=== PATIENT | female | born 1985 | race Caucasian/White ===

== ENCOUNTER 2019-06-11 14:32 | Emergency (ER) | payer BC, OTHER ==
[2019-06-11 15:33] VITALS: BP 137/83; PULSE 112
--- NOTE | 2019-06-11 15:49 | EDM.PDOC ---
ED HPI GENERAL MEDICAL PROBLEM - General Chief Complaint: Respiratory Problem Stated Complaint: COUGH Time Seen by Provider: 06/11/19 15:25 - History of Present Illness INITIAL COMMENTS - FREE TEXT/NARRATIVE: HISTORY AND PHYSICAL: History of present illness: Patient is a 33-year-old female who presents with over 10 day history of dry cough and congestion and is here with 2 of her children who have similar symptoms. The children have tested positive for influenza B but the patient has not been tested and has been using [id number] symptomatic management. She is eating and drinking normally and she has no pulmonary history. She is here just due to frustration with her children and her own symptoms and wanted evaluation. Review of systems: As per history of present illness and below otherwise all systems reviewed and negative. Past medical history: As per history of present illness and as reviewed below otherwise noncontributory. Surgical history: As per history of present illness and as reviewed below otherwise noncontributory. Social history: No reported history of drug or alcohol abuse. Family history: As per history of present illness and as reviewed below otherwise noncontributory. Physical exam: Patient's voice is normal without hoarse or breathlessness and she exhibits no cough on my evaluation HEENT: Atraumatic, normocephalic, pupils reactive, negative for conjunctival pallor or scleral icterus, mucous membranes moist, throat clear, neck supple, nontender, trachea midline. Lungs: Clear to auscultation, breath sounds equal bilaterally, chest nontender. No wheezing stridor or work of breathing Heart: S1S2, regular and rhythm no overt murmurs Abdomen: Soft, nondistended, nontender. NABS Pelvis: Deferred Genitourinary: Deferred. Rectal: Deferred. Extremities: Atraumatic, negative for cords or calf pain. Neurovascular unremarkable. Neuro: Awake, alert, oriented. Cranial nerves II through XII unremarkable. Cerebellum unremarkable. Motor and sensory unremarkable throughout. Exam nonfocal. Diagnostics: [] Therapeutics: [] Impression: URI with cough Definitive disposition and diagnosis as appropriate pending reevaluation and review of above. - Related Data Allergies Allergy/AdvReac Type Severity Reaction Status Date / Time No Known Allergies Allergy Verified 06/11/19 15:30 Home Meds: Home Meds Albuterol [Ventolin HFA] 2 inh INH Q4HR 10/12/14 [History] Amoxicillin 875 mg PO ASDIRECTED 06/11/19 [History] Past Medical History - Infectious Disease History Infectious Disease History: Reports: None - Past Surgical History HEENT Surgical History: Reports: Adenoidectomy, Tonsillectomy Social & Family History - Family History Family Medical History: Noncontributory - Tobacco Use Smoking Status *Q: Current Every Day Smoker Years of Tobacco use: 10 Packs/Tins Daily: 1 - Caffeine Use Caffeine Use: Reports: Coffee - Recreational Drug Use Recreational Drug Use: No ED ROS GENERAL - Review of Systems Review Of Systems: Comprehensive ROS is negative, except as noted in HPI. ED EXAM, GENERAL - Physical Exam Exam: See Below (See dictation) Course - Vital Signs Last Recorded V/S: Last Vital Signs Temp 37.4 C 06/11/19 15:31 Pulse 112 H 06/11/19 15:31 Resp 18 06/11/19 15:31 BP 137/83 06/11/19 15:31 Pulse Ox 95 06/11/19 15:31 Departure - Departure Time of Disposition: 15:49 Disposition: Home, Self-Care 01 Condition: Good Clinical Impression: URI with cough and congestion - Discharge Information Referrals: Rebecca Hernández DO [Primary Care Provider] - Additional Instructions: The following information is given to patients seen in the emergency department who are being discharged to home. This information is to outline your options for follow-up care. We provide all patients seen in our emergency department with a follow-up referral. The need for follow-up, as well as the timing and circumstances, are variable depending upon the specifics of your emergency department visit. If you don't have a primary care physician on staff, we will provide you with a referral. We always advise you to contact your personal physician following an emergency department visit to inform them of the circumstance of the visit and for follow-up with them and/or the need for any referrals to a consulting specialist. The emergency department will also refer you to a specialist when appropriate. This referral assures that you have the opportunity for followup care with a specialist. All of these measure are taken in an effort to provide you with optimal care, which includes your followup. Under all circumstances we always encourage you to contact your private physician who remains a resource for coordinating your care. When calling for followup care, please make the office aware that this follow-up is from your recent emergency room visit. If for any reason you are refused follow-up, please contact the [facility] emergency department at and ask to speak to the emergency department charge nurse. [facility] Primary care- Internal Medicine and Family [facility] [address] [place] [id number] [place], [place] [id number] Use [id number] meds and symptomatic management as we discussed and follow- up with your provider in the clinic. Return to ER as needed and as discussed
== END 2019-06-11 16:05 | disposition home or self-care (01) ==
LOC: MW.ED 14:32
DX: J06.9 Acute upper respiratory infection, unspecified (principal); F17.210 Nicotine dependence, cigarettes, uncomplicated
CPT/HCPCS: 99283

== ENCOUNTER 2020-11-08 18:59 | Emergency (ER) | payer BC, OTHER ==
[2020-11-08] MEDS ORDERED: Cephalexin 500 MG Cap PO ONE (19:50)
[2020-11-08] MEDS ORDERED: traMADol 50 MG Tab PO ONE (19:50)
--- NOTE | 2020-11-08 19:56 | EDM.PDOC ---
ED HPI GENERAL MEDICAL PROBLEM - General Chief Complaint: ENT Problem Stated Complaint: THROBBING MOUTH AND TOOTH PAIN Time Seen by Provider: 11/08/20 19:37 - History of Present Illness INITIAL COMMENTS - FREE TEXT/NARRATIVE: HISTORY AND PHYSICAL: History of present illness: This is a 35-year-old female who presents ER today secondary to pain and throbbing to her left upper teeth where she had 2 extractions done earlier today . Patient is concerned that the throbbing may be secondary to infection. Patient reports that she saw her dentist today and had 2 teeth extracted and was not sent home on any antibiotics and is concerned that the throbbing might be the development of infection. Patient reports that she has been taking acetaminophen and ibuprofen with some relief in her discomfort. Patient denies any other symptoms at this time. Patient has any recent fevers, shakes, chills, nausea, vomiting, diarrhea, dysuria, frequency, urgency. Review of systems: As per history of present illness and below otherwise all systems reviewed and negative. Past medical history: As per history of present illness and as reviewed below otherwise noncontributory. Surgical history: As per history of present illness and as reviewed below otherwise noncontributory. Social history: No reported history of drug or alcohol abuse. Family history: As per history of present illness and as reviewed below otherwise noncontr ibutory. Physical exam: This patient was seen and evaluated during the 2019 SARS-CoV-2 novel coronavirus pandemic period. Community viral transmission is ongoing at time of this encounter and the emergency department is operating under pandemic response procedures. Constitutional: Patient is oriented to person, place, and time. Appears well- developed and well-nourished. No distress. HEENT: Moist mucous membranes Head: Normocephalic and atraumatic Eyes: Right eye exhibits no discharge. Left eye exhibits no discharge. No scleral icterus Neck: Normal range of motion. No tracheal deviation present. Cardiovascular: Normal rate and regular rhythm. Pulmonary: Effort normal, no respiratory distress. Abdominal: No distention Musculoskeletal: Normal range of motion Neurologic: Alert and oriented to person, place and time. Skin: Bonita, warm and dry. Psychiatric: Normal mood and affect. Behavior is normal. Judgment and thought content normal. Nursing note and vital signs have been reviewed Patient's ER physical exam is significant for gums consistent with extraction of her 2 left upper teeth with no drainage or odor. No swelling or abscess identified. Patient has no trismus or evidence of airway compromise. Diagnostics: [] Therapeutics: [] Assessment and plan: 35-year-old female who presents ER today status post extraction of her teeth who presents secondary to pain and throbbing at the site of her extraction. Patient be given Keflex and Ultram. At this time I don't see any evidence of acute infection however given the nature of the procedure I feel initiating antibiotics would be appropriate. I discussed with patient need to follow-up with her dentist in the next 1 to 2 days for reevaluation if she has any new issues or concerns. Reassessment at the time of disposition demonstrates that the patient is in no acute distress. The patient has remained stable throughout the entire ED visit and is without objective evidence for acute process requiring urgent intervention or hospitalization. The patient is stable for discharge, counseling is provided as documented above, discussed symptomatic treatment and specific conditions for return. I have spoken with the patient/caregiver and discussed todays findings, in addition to providing specific details for the plan of care. Questions are answered and there is agreement with the plan. Definitive disposition and diagnosis as appropriate pending reevaluation and review of above. - Related Data Allergies Allergy/AdvReac Type Severity Reaction Status Date / Time No Known Allergies Allergy Verified 11/08/20 19:34 Home Meds: Home Meds Albuterol [Ventolin HFA] 2 inh INH Q4HR 10/12/14 [History] cephALEXin [Keflex] 500 mg PO Q8H #15 cap 11/08/20 [Rx] traMADol [Ultram] 50 mg PO Q6H PRN #60 tab 11/08/20 [Rx] Past Medical History - Infectious Disease History Infectious Disease History: Reports: None - Past Surgical History HEENT Surgical History: Reports: Adenoidectomy, Tonsillectomy Social & Family History - Family History Family Medical History: No Pertinent Family History - Tobacco Use Tobacco Use Status *Q: Never Tobacco User Second Hand Smoke Exposure: No - Caffeine Use Caffeine Use: Reports: Coffee - Recreational Drug Use Recreational Drug Use: No ED ROS GENERAL - Review of Systems Review Of Systems: See Below ED EXAM, GENERAL - Physical Exam Exam: See Below Course - Vital Signs Last Recorded V/S: Last Vital Signs Temp 97.9 F 11/08/20 19:27 Pulse 76 11/08/20 19:27 Resp 16 11/08/20 19:27 BP 130/82 11/08/20 19:27 Pulse Ox 98 11/08/20 19:27 - Orders/Labs/Meds Orders: Active Orders 24 hr Category Date Time Status cephALEXin [Keflex] Med 11/08/20 19:50 Once 500 mg PO ONETIME ONE traMADol [Ultram] Med 11/08/20 19:50 Once 50 mg PO ONETIME ONE Departure - Departure Time of Disposition: 19:53 Disposition: Home, Self-Care 01 Condition: Good Clinical Impression: Tooth ache - Discharge Information Instructions: Acute Pain, Adult Referrals: PCP,None [Primary Care Provider] - Forms: ED Department Discharge Additional Instructions: You were seen and evaluated in the ER today secondary to pain and swelling and throbbing in the area of your recent dental extraction. Although I do not see any evidence of infection at this time we will start you on Keflex 500 mg 3 times a day for 5 days. Please make an appointment to see your dentist in the next 2 to 3 days if you have any new or concerning symptoms. We'll also write you a prescription for Ultram to assist you with your pain for couple days. The following information is given to patients seen in the emergency department who are being discharged to home. This information is to outline your options for follow-up care. We provide all patients seen in our emergency department with a follow-up referral. The need for follow-up, as well as the timing and circumstances, are variable depending upon the specifics of your emergency department visit. If you don't have a primary care physician on staff, we will provide you with a referral. We always advise you to contact your personal physician following an emergency department visit to inform them of the circumstance of the visit and for follow-up with them and/or the need for any referrals to a consulting specialist. The emergency department will also refer you to a specialist when appropriate. This referral assures that you have the opportunity for follow-up care with a specialist. All of these measure are taken in an effort to provide you with optimal care, which includes your follow-up. Under all circumstances we always encourage you to contact your private physician who remains a resource for coordinating your care. When calling for follow-up care, please make the office aware that this follow-up is from your recent emergency room visit. If for any reason you are refused follow-up, please contact the [facility] Emergency Department at and asked to speak to the emergency department charge nurse. [facility] - Primary Care [address] [place] [id number] [facility] [address] [place] [id number] Sepsis Event Note (ED) - Evaluation Sepsis Screening Result: No Definite Risk - Focused Exam Vital Signs: Vital Signs Temp Pulse Resp BP Pulse Ox 11/08/20 19:27 97.9 F 76 16 130/82 98 - My Orders Last 24 Hours: My Active Orders 11/08/20 19:50 cephALEXin [Keflex] 500 mg PO ONETIME ONE traMADol [Ultram] 50 mg PO ONETIME ONE - Assessment/Plan Last 24 Hours: My Active Orders 11/08/20 19:50 cephALEXin [Keflex] 500 mg PO ONETIME ONE traMADol [Ultram] 50 mg PO ONETIME ONE
[2020-11-08 20:07] VITALS: BP 123/75; PULSE 87
== END 2020-11-08 20:07 | disposition home or self-care (01) ==
LOC: MW.ED 18:59
DX: K08.89 Other specified disorders of teeth and supporting structures (principal)
CPT/HCPCS: 99282; A9270; 99283

== ENCOUNTER 2021-12-19 16:30 | Emergency (ER) | payer BC | END 2021-12-19 21:00 | disposition left against medical advice (07) | LOC: MW.ED 16:30 | DX: Z53.21 Procedure and treatment not carried out due to patient leaving prior to being seen by health care provider (principal) ==

== ENCOUNTER 2022-09-05 09:54 | Emergency (ER) | payer BC ==
[2022-09-05 11:23] LABS: CORONAVIRUS COVID-19 NAA POSITIVE (NEGATIVE); INFLUENZA A NAA NEGATIVE (NEGATIVE); INFLUENZA B NAA NEGATIVE (NEGATIVE)
[2022-09-05 11:45] VITALS: BP 152/95; PULSE 92
== END 2022-09-05 11:44 | disposition home or self-care (01) ==
LOC: MW.ED 09:54
DX: U07.1 COVID-19 (principal); H65.01 Acute serous otitis media, right ear; J45.909 Unspecified asthma, uncomplicated; E11.9 Type 2 diabetes mellitus without complications
CPT/HCPCS: 0240U; 81025; 99283

== ENCOUNTER 2022-10-17 15:58 | Emergency (ER) | payer BC ==
[2022-10-17] MEDS ORDERED: Penicillin V Potassium Soln 250 MG/5 ML 100 ML Bottle PO ONE (17:07)
[2022-10-17] MEDS ORDERED: Acetaminophen/HYDROcodone 325-5 MG Tab PO ONE (17:07)
[2022-10-17] MEDS ORDERED: Penicillin V Potassium 500 MG Tab PO ONE (17:18)
[2022-10-17 17:27] VITALS: BP 127/72; PULSE 109
== END 2022-10-17 17:25 | disposition home or self-care (01) ==
LOC: MW.ED 15:58
DX: K03.81 Cracked tooth (principal); K04.7 Periapical abscess without sinus; E11.9 Type 2 diabetes mellitus without complications; Z72.0 Tobacco use; Z79.84 Long term (current) use of oral hypoglycemic drugs
CPT/HCPCS: 99282; A9270